=== PATIENT | female | born 1950 | race Caucasian/White ===

== ENCOUNTER 2025-10-27 16:55 | Inpatient (IN) | payer MEDICARE, MEDICAID ==
[~2025-10-27] VITALS: Ht 170.1 cm; Wt 55.0 kg
[~2025-10-27 16:55] MED LIST: CLONAZEPAM0.25 MG PO
[2025-10-27 16:57] VITALS: BP 127/61
[2025-10-27 17:47] LABS: BASO # 0.0 10*3/uL (0.0-0.1); BASO % 0.4 % (0.0-1.0); EOS # 0.1 10*3/uL (0.0-0.4); EOS % 0.6 % (1.0-4.0); MEAN CELL VOLUME 95.8 fl (81.0-99.0); MEAN CORPUSCULAR HGB 31.0 pg (27.0-31.0); MEAN PLATELET VOLUME 10.1 fl (9.6-12.3); MONO # 1.2 10*3/uL (0.1-1.0); MONO % 11.0 % (3.0-9.0); NEUT # 6.7 10*3/uL (2.3-7.9); NEUT % 62.1 % (47.0-73.0); NUCLEATED RED BLOOD CELL 0.0 % (0.0-0.0); NUCLEATED RED BLOOD CELL 0.0 10*3/uL (0.0-0.0); PLATELET COUNT AUTOMATED 285 10*3/uL (130-400); RED CELL DISTRI WIDTH 13.2 % (0-14.5)
[2025-10-27 18:09] LABS: BUN 17 mg/dl (9-23); ETHYL ALCOHOL < 3.0 mg/dl (<3); SGPT/ALT 15 U/L (5-49)
[2025-10-27] MEDS ORDERED: CELEXA10 MG PO (18:30)
[2025-10-27] MEDS ORDERED: DEPAKOTE SPRIN125 MG PO (18:32)
[2025-10-27] MEDS ORDERED: PEPCID40 MG PO (18:33)
[2025-10-27] MEDS ORDERED: FREESTYLE LIBR1 EAC3 SQ (18:35)
[2025-10-27] MEDS ORDERED: HALOPERIDOL5 MG/1 M2 IM (18:37)
[2025-10-27] MEDS ORDERED: HALOPERIDOL1 MG PO (18:38)
[2025-10-27] MEDS ORDERED: HUMALOG JU100 UNIT/1 SQ (18:40)
[2025-10-27] MEDS ORDERED: MEMANTINE HCL5 MG PO (18:41)
[2025-10-27] MEDS ORDERED: SYNTHROID,LEVO88 MCG PO (18:42)
[2025-10-27] MEDS ORDERED: TRESIBA FL100 UNIT/1 SQ (18:44)
[2025-10-27] MEDS ORDERED: ACETAMINOPHEN 325 MG TAB PO PRN (19:55)
[2025-10-27] MEDS ORDERED: MG-AL HYDROXIDE/SIMETICONE 30 ML UDC PO PRN (19:55)
[2025-10-27] MEDS ORDERED: Menthol/Zinc Oxide 4 GM THIN T PRN (20:00)
[2025-10-27] MEDS ORDERED: LORazepam 1 MG TAB PO PRN (20:00)
[2025-10-27] MEDS ORDERED: hydrOXYzine hydrochloride 50 MG/ML VIAL IM PRN (20:05)
[2025-10-27] MEDS ORDERED: DIVALPROEX (DR) 250 MG TAB PO SCH (21:00)
[2025-10-27] MEDS ORDERED: Memantine Hydrochloride 5 MG TAB PO SCH (21:00)
[2025-10-27] MEDS ORDERED: Insulin Glargine, Recombinan 300 UNITS/3 ML PEN SC SCH (23:00)
[2025-10-27] MEDS ORDERED: DEXTROSE 50% 25 GM/50 ML VIAL IV PRN (23:15)
[2025-10-28 06:28] LABS: BASO # 0.0 10*3/uL (0.0-0.1); BASO % 0.4 % (0.0-1.0); EOS # 0.1 10*3/uL (0.0-0.4); EOS % 1.0 % (1.0-4.0); MEAN CELL VOLUME 97.0 fl (81.0-99.0); MEAN CORPUSCULAR HGB 32.3 pg (27.0-31.0); MEAN PLATELET VOLUME 10.7 fl (9.6-12.3); MONO # 1.1 10*3/uL (0.1-1.0); MONO % 11.6 % (3.0-9.0); NEUT # 5.9 10*3/uL (2.3-7.9); NEUT % 60.7 % (47.0-73.0); NUCLEATED RED BLOOD CELL 0.0 % (0.0-0.0); NUCLEATED RED BLOOD CELL 0.0 10*3/uL (0.0-0.0); PLATELET COUNT AUTOMATED 231 10*3/uL (130-400); RED CELL DISTRI WIDTH 13.2 % (0-14.5)
[2025-10-28 06:49] LABS: LDL CHOLESTEROL 61 mg/dL (9-159)
[2025-10-28] MEDS ORDERED: INSULIN LISPRO 1 UNIT/0.01 ML SQ SCH (07:30)
[2025-10-28 08:12] LABS: VITAMIN D, 25-HYDROXY 51.6 ng/mL (30-100)
[2025-10-28] MEDS ORDERED: FAMOTIDINE 20 MG TAB PO SCH (09:00)
[2025-10-28] MEDS ORDERED: Cholecalciferol 2,000 UNIT TABLET (50 MCG) PO SCH (09:00)
[2025-10-28] MEDS ORDERED: Rivastigmine Tartrate 4.6 MG/24 HR PATCH T SCH (09:00)
[2025-10-28 09:19] VITALS: BP 102/45
[2025-10-28 10:38] LABS: BILIRUBIN Negative (Negative); BLOOD Negative (Negative); CLARITY Clear (Clear); COLOR Yellow (Yellow); KETONE Negative (Negative); LEUKO ESTERASE Negative (Negative); NITRITE Negative (Negative); PH 6.5 (4.5-8.0); SPECIFIC GRAVITY 1.015 (1.001-1.030); UROBILINOGEN 0.2 E.U./dl (0.0-1.0)
[2025-10-28 11:03] LABS: URINE AMPHETAMINES Negative (1000ng/ml); URINE BARBITURATES Negative (200ng/ml); URINE BENZODIAZEPINES Negative (200ng/ml); URINE CANNABINOIDS (THC) Negative (50ng/ml); URINE COCAINE Negative (300ng/ml); URINE METHADONE Negative (300ng/ml); URINE OPIATES Negative (300ng/ml); URINE PHENCYCLIDINE Negative (25ng/ml)
[2025-10-28 11:17] LABS: BACTERIA 1+; HYALINE CAST 0-2; MUCOUS TRACE; RBC 0-2 rbc/hpf (0-2); WBC 0-2 wbc/hpf (0-5)
[2025-10-28 20:00] VITALS: BP 87/68
[2025-10-28] MEDS ORDERED: risperiDONE 0.5 MG TAB PO SCH (21:00)
[2025-10-28] MEDS ORDERED: DIVALPROEX SODIUM 125 MG CAP PO SCH (21:00)
[2025-10-29 08:00] VITALS: BP 131/85
[2025-10-29 20:00] VITALS: BP 140/100
[2025-10-29] MEDS ORDERED: VALPROIC ACID 250 MG CAP PO SCH (21:00)
[2025-10-30 08:00] VITALS: BP 120/97
[2025-10-30] MEDS ORDERED: ROSUVASTATIN CAL5 MG PO (09:42)
[2025-10-30] MEDS ORDERED: Water, Sterile 10 ML VIAL ONE (16:24)
[2025-10-30] MEDS ORDERED: diphenhydrAMINE hydrochloride 50 MG/ML VIAL IM ONE (17:30)
[2025-10-30 20:00] VITALS: BP 148/87
[2025-10-30] MEDS ORDERED: risperiDONE 0.5 MG TAB OGT SCH (21:00)
[2025-10-31 08:00] VITALS: BP 122/68
[2025-10-31] MEDS ORDERED: Rivastigmine Tartrate 9.5 MG/24 HR PATCH T SCH (09:00)
[2025-10-31 20:00] VITALS: BP 139/72
[2025-11-01] MEDS ORDERED: Glucagon Hydrochloride 1 MG SYR IM ONE (06:45)
[2025-11-01] MEDS ORDERED: Glucagon Hydrochloride 1 MG SYR ONE (07:18)
[2025-11-01 07:58] VITALS: BP 136/70
[2025-11-01] MEDS ORDERED: INSULIN LISPRO 1 UNIT/0.01 ML SQ ONE (18:30)
[2025-11-01] MEDS ORDERED: risperiDONE 0.5 MG TAB OGT SCH (21:00)
[2025-11-02] MEDS ORDERED: DEXTROSE PO ONE (03:45)
[2025-11-02] MEDS ORDERED: INSULIN LISPRO 1 UNIT/0.01 ML SQ SCH (07:30)
[2025-11-02 08:00] VITALS: BP 137/59
[2025-11-02 20:00] VITALS: BP 109/83
[2025-11-03 06:41] LABS: BASO # 0.1 10*3/uL (0.0-0.1); BASO % 0.3 % (0.0-1.0); EOS # 0.0 10*3/uL (0.0-0.4); EOS % 0.1 % (1.0-4.0); MEAN CELL VOLUME 97.8 fl (81.0-99.0); MEAN CORPUSCULAR HGB 31.6 pg (27.0-31.0); MEAN PLATELET VOLUME 10.8 fl (9.6-12.3); MONO # 1.5 10*3/uL (0.1-1.0); MONO % 9.8 % (3.0-9.0); NEUT # 11.1 10*3/uL (2.3-7.9); NEUT % 72.3 % (47.0-73.0); NUCLEATED RED BLOOD CELL 0.0 % (0.0-0.0); NUCLEATED RED BLOOD CELL 0.0 10*3/uL (0.0-0.0); PLATELET COUNT AUTOMATED 412 10*3/uL (130-400); RED CELL DISTRI WIDTH 14.1 % (0-14.5)
[2025-11-03 06:48] LABS: BUN 37.0 mg/dl (9-23); SGPT/ALT 25.0 U/L (5-49)
[2025-11-03 08:00] VITALS: BP 138/74
[2025-11-03] MEDS ORDERED: SODIUM CHLORIDE 0.9% 1,000 ML IV ONE (12:05)
[2025-11-03 20:00] VITALS: BP 137/70
[2025-11-04 08:00] VITALS: BP 131/85
[2025-11-04] MEDS ORDERED: RIVASTIGMINE 13.3 MG/24 HR TDM T SCH (09:00)
[2025-11-04] MEDS ORDERED: diphenhydrAMINE hydrochloride 50 MG/ML VIAL IM ONE (09:00)
[2025-11-04] MEDS ORDERED: diphenhydrAMINE hydrochloride 50 MG/ML VIAL ONE (09:32)
[2025-11-04 10:15] LABS: BASO # 0.0 10*3/uL (0.0-0.1); BASO % 0.2 % (0.0-1.0); EOS # 0.0 10*3/uL (0.0-0.4); EOS % 0.0 % (1.0-4.0); MEAN CELL VOLUME 98.7 fl (81.0-99.0); MEAN CORPUSCULAR HGB 31.9 pg (27.0-31.0); MEAN PLATELET VOLUME 10.3 fl (9.6-12.3); MONO # 1.0 10*3/uL (0.1-1.0); MONO % 6.8 % (3.0-9.0); NEUT # 12.3 10*3/uL (2.3-7.9); NEUT % 84.0 % (47.0-73.0); NUCLEATED RED BLOOD CELL 0.0 % (0.0-0.0); NUCLEATED RED BLOOD CELL 0.0 10*3/uL (0.0-0.0); PLATELET COUNT AUTOMATED 363 10*3/uL (130-400); RED CELL DISTRI WIDTH 14.3 % (0-14.5)
[2025-11-04 10:51] LABS: BUN 37.0 mg/dl (9-23); SGPT/ALT 22.0 U/L (5-49)
[2025-11-04 19:39] LABS: BILIRUBIN Negative (Negative); BLOOD Negative (Negative); CLARITY Turbid (Clear); COLOR Yellow (Yellow); KETONE 2+ (Negative); LEUKO ESTERASE Negative (Negative); NITRITE Negative (Negative); PH 5.0 (4.5-8.0); SPECIFIC GRAVITY >= 1.030 (1.001-1.030); UROBILINOGEN 1.0 E.U./dl (0.0-1.0)
[2025-11-04 19:55] LABS: BACTERIA TRACE; RBC 0-2 rbc/hpf (0-2)
[2025-11-04 19:56] LABS: MUCOUS 1+; URIC ACID CRYSTALS 3+
[2025-11-04 20:00] VITALS: BP 105/71
[2025-11-05 08:00] VITALS: BP 124/50
[2025-11-05 08:25] LABS: BASO # 0.0 10*3/uL (0.0-0.1); BASO % 0.2 % (0.0-1.0); EOS # 0.0 10*3/uL (0.0-0.4); EOS % 0.1 % (1.0-4.0); MEAN CELL VOLUME 98.7 fl (81.0-99.0); MEAN CORPUSCULAR HGB 31.2 pg (27.0-31.0); MEAN PLATELET VOLUME 10.3 fl (9.6-12.3); MONO # 1.1 10*3/uL (0.1-1.0); MONO % 7.3 % (3.0-9.0); NEUT # 11.9 10*3/uL (2.3-7.9); NEUT % 79.4 % (47.0-73.0); NUCLEATED RED BLOOD CELL 0.0 % (0.0-0.0); NUCLEATED RED BLOOD CELL 0.0 10*3/uL (0.0-0.0); PLATELET COUNT AUTOMATED 335 10*3/uL (130-400); RED CELL DISTRI WIDTH 14.4 % (0-14.5)
[2025-11-05 09:03] LABS: BUN 25.0 mg/dl (9-23); SGPT/ALT 20.0 U/L (5-49)
[2025-11-05] MEDS ORDERED: HALOPERIDOL DECANOATE 50 MG/ML AMP IM SCH (10:00)
[2025-11-05 20:00] VITALS: BP 140/80
[2025-11-06 07:44] VITALS: BP 133/90
[2025-11-06] MEDS ORDERED: DEXTROSE 5% 1,000 ML IV SCH (13:00)
[2025-11-06] MEDS ORDERED: INSULIN REGULAR, HUMAN 1 UNIT/0.01 ML IV ONE (16:30)
[2025-11-06 20:00] VITALS: BP 133/64
[2025-11-07 08:00] VITALS: BP 142/72
[2025-11-07 08:09] LABS: BUN 21.0 mg/dl (9-23); SGPT/ALT 17.0 U/L (5-49)
[2025-11-07 08:48] LABS: BASO # 0.0 10*3/uL (0.0-0.1); BASO % 0.1 % (0.0-1.0); EOS # 0.0 10*3/uL (0.0-0.4); EOS % 0.3 % (1.0-4.0); MEAN CORPUSCULAR HGB 31.5 pg (27.0-31.0); MEAN PLATELET VOLUME 10.8 fl (9.6-12.3); MONO # 1.1 10*3/uL (0.1-1.0); MONO % 7.1 % (3.0-9.0); NEUT # 12.2 10*3/uL (2.3-7.9); NEUT % 77.6 % (47.0-73.0); NUCLEATED RED BLOOD CELL 0.0 % (0.0-0.0); NUCLEATED RED BLOOD CELL 0.0 10*3/uL (0.0-0.0); PLATELET COUNT AUTOMATED 331 10*3/uL (130-400); RED CELL DISTRI WIDTH 14.2 % (0-14.5)
[2025-11-07 08:54] LABS: MEAN CELL VOLUME 97.0 fl (81.0-99.0)
[2025-11-07] MEDS ORDERED: EXELON1 EAC2 TD (10:41)
[2025-11-07] MEDS ORDERED: NAMENDA-5 PO (10:42)
[2025-11-07] MEDS ORDERED: REMERON SOLTAB15 MG PO (10:42)
[2025-11-07] MEDS ORDERED: VITAMIN D350 MC2 PO (10:44)
== END 2025-11-07 11:30 | DRG 883 ==
LOC: ED 16:55 → EDHOLD 18:40 → 3N 18:40
PROVIDERS: Counselor Professional; Family Medicine; Nurse Practitioner Family; Nurse Practitioner Women's Health; Registered Nurse; Student in an Organized Health Care Education/Training Program; ADMIT Psychiatry & Neurology Psychiatry; ATTEND Psychiatry & Neurology Psychiatry
PROC: GZHZZZZ Group Psychotherapy (ICD-10-PCS; principal; 2025-10-29)
PROC: GZ56ZZZ Individual Psychotherapy, Supportive (ICD-10-PCS; 2025-10-29)
DX: F63.81 Intermittent explosive disorder (principal); E11.65 Type 2 diabetes mellitus with hyperglycemia; F02.84 Dementia in other diseases classified elsewhere, unspecified severity, with anxiety; I48.20 Chronic atrial fibrillation, unspecified; F02.83 Dementia in other diseases classified elsewhere, unspecified severity, with mood disturbance; F02.811 Dementia in other diseases classified elsewhere, unspecified severity, with agitation; F33.1 Major depressive disorder, recurrent, moderate; G30.9 Alzheimer's disease, unspecified; D64.9 Anemia, unspecified; Z66 Do not resuscitate; M81.0 Age-related osteoporosis without current pathological fracture; E03.9 Hypothyroidism, unspecified; E78.2 Mixed hyperlipidemia; I10 Essential (primary) hypertension; Z91.040 Latex allergy status; Z88.8 Allergy status to other drugs, medicaments and biological substances; Z91.09 Other allergy status, other than to drugs and biological substances; Z79.899 Other long term (current) drug therapy; Z79.01 Long term (current) use of anticoagulants; Z79.2 Long term (current) use of antibiotics; Z79.4 Long term (current) use of insulin